=== PATIENT | female | born 1960 | race Caucasian/White ===

== ENCOUNTER → 2016-12-06 | Outpatient (CLI) | payer OTHER ==
--- NOTE | 2016-12-06 11:11 | REPMRS ---
Patient History The patient states she had a clinical breast exam in October 2016. Patient had first child at age 33. Family history of unknown cancer in paternal grandfather at age 50 or over and breast cancer in mother at age 54. Digital Mammo Screening Bilat: December 06, 2016 - Exam #: [id number] Bilateral CC and MLO view(s) were taken. Technologist: America Bhandari, Technologist Prior study comparison: December 04, 2015, bilateral digital mammo screening bilat performed at [facility]. December 01, 2014, bilateral digital mammo screening bilat performed at [facility]. November 29, 2013, bilateral digital mammo screening bilat performed at [facility]. FINDINGS: There are scattered fibroglandular densities. There has been no change in the appearance of the mammogram from the prior studies. There is a mild amount of scattered fibroglandular density which is fairly symmetric. There is no interval development of dominant mass, architectural distortion, or clustered microcalcification suggestive of malignancy. ASSESSMENT: BI-RADS/ACR category 1 mammogram. Negative. Recommendation Routine screening mammogram in 1 year (for women over age 40). This mammogram was interpreted with the aid of an FDA-approved computer-aided dectection system. Electronically Signed By: Jorge Levy MD 12/06/16 1111
== END ==
LOC: M RAD 10:34
PROVIDERS: ATTEND Family Medicine
DX: Z12.31 Encounter for screening mammogram for malignant neoplasm of breast (principal); Z80.3 Family history of malignant neoplasm of breast

== ENCOUNTER → 2017-01-21 | Outpatient (REF) | payer OTHER ==
[2017-01-21 19:10] LABS: CREATININE FOR GFR 1.22 MG/DL (0.55-1.02); GLOMERULAR FILTRATION RATE 48.7 (>51)
== END ==
LOC: M LABDRAW1 15:27
PROVIDERS: ATTEND Physician Assistant Medical
DX: M67.472 Ganglion, left ankle and foot (principal)

== ENCOUNTER → 2017-06-03 | Outpatient (CLI) | payer OTHER ==
[2017-06-03 17:26] LABS: BASO % 0.5 % (0.0-1.0); EOS # 0.1 10^3/uL (0.0-0.50); HEMATOCRIT 46.2 % (36.0-47.0); HEMOGLOBIN 14.9 g/dl (12.0-16.0); IMMATURE GRANULOCYTE % 0.3 % (0-3.0); LYMPH # 2.1 10^3/uL (1.5-4.5); LYMPH % 34.5 % (24.0-44.0); MEAN CORPUSCULAR HEMOGLOBIN 31.5 pg (27.0-33.0); MEAN CORPUSCULAR HGB CONC 32.3 g/dl (32.0-36.5); MEAN CORPUSCULAR VOLUME 97.7 fl (80.0-96.0); MONO # 0.4 10^3/uL (0.0-0.8); MONO % 6.8 % (0.0-5.0); NEUTROPHILS # 3.4 10^3/uL (1.8-7.7); NEUTROPHILS % 55.9 % (36.0-66.0); PLATELET COUNT, AUTOMATED 324 10^3/uL (150-450); RED BLOOD COUNT 4.73 10^6/uL (4.00-5.40); RED CELL DISTRIBUTION WIDTH 11.7 % (11.5-14.5); WHITE BLOOD COUNT 6.1 10^3/uL (4.0-10.0)
[2017-06-03 17:58] LABS: ALBUMIN 3.9 GM/DL (3.2-5.2); ALBUMIN/GLOBULIN RATIO 1.05 (1.00-1.93); ALKALINE PHOSPHATASE 114 U/L (45-117); ALT/SGPT 27 U/L (12-78); ANION GAP 6 MEQ/L (8-16); AST/SGOT 15 U/L (7-37); BILIRUBIN,TOTAL 0.4 MG/DL (0.2-1.0); BLOOD UREA NITROGEN 13 MG/DL (7-18); CALCIUM LEVEL 8.7 MG/DL (8.5-10.1); CARBON DIOXIDE LEVEL 31 MEQ/L (21-32); CHLORIDE LEVEL 104 MEQ/L (98-107); CHOLESTEROL LEVEL 172 MG/DL (<200); CHOLESTEROL RISK RATIO 3.127 (<5); CREATININE FOR GFR 0.71 MG/DL (0.55-1.30); GLOMERULAR FILTRATION RATE > 60.0 (>51); GLUCOSE, FASTING 88 MG/DL (70-100); HDL CHOLESTEROL 55 MG/DL (>40); LDL CHOLESTEROL 91.2 MG/DL (<100); NON-HDL-C 117 MG/DL; POTASSIUM SERUM 4.2 MEQ/L (3.5-5.1); SODIUM LEVEL 141 MEQ/L (136-145); TOTAL PROTEIN 7.6 GM/DL (6.4-8.2); TRIGLYCERIDES LEVEL 129 MG/DL (<150)
== END ==
LOC: M WUC 12:04
DX: I10 Essential (primary) hypertension (principal)
CPT/HCPCS: 84443

== ENCOUNTER 2017-06-04 09:16 | Day surgery (SDC) | payer OTHER ==
[2017-06-04] MEDS ORDERED: NS 1,000 ML IV (10:15)
[2017-06-04] MEDS ORDERED: PROPOFOL 200 MG/20 ML VIAL As Ordered ×2 (10:36→10:51)
[2017-06-04] MEDS ORDERED: LIDOCAINE 2% INJ 100 MG/5 ML SDV (FOR ANES.) As Ordered (10:36)
== END 2017-06-04 11:30 | disposition home or self-care (01) ==
LOC: M OPP 09:16
DX: Z12.11 Encounter for screening for malignant neoplasm of colon (principal); Z86.010 Personal history of colon polyps; K57.30 Diverticulosis of large intestine without perforation or abscess without bleeding; I10 Essential (primary) hypertension; K21.9 Gastro-esophageal reflux disease without esophagitis; M19.90 Unspecified osteoarthritis, unspecified site; Z78.0 Asymptomatic menopausal state; Z79.899 Other long term (current) drug therapy
CPT/HCPCS: G0105

== ENCOUNTER → 2018-03-09 | Outpatient (CLI) | payer OTHER | LOC: M RAD 16:03 | DX: D25.9 Leiomyoma of uterus, unspecified (principal); N95.0 Postmenopausal bleeding | CPT/HCPCS: 76856 ==

== ENCOUNTER → 2018-03-15 | Outpatient (CLI) | payer OTHER | LOC: M WUC 14:45 | DX: M17.11 Unilateral primary osteoarthritis, right knee (principal) | CPT/HCPCS: 73564 ==

== ENCOUNTER → 2018-06-04 | Outpatient (CLI) | payer OTHER ==
[~2018-06-04] MED LIST: LORA-243 PO; LOSA50TA88; MONT10TA2; PANT40TA3; VITA100067 PO; VITA50005
[2018-06-04 15:03] LABS: ALBUMIN 3.6 GM/DL (3.2-5.2); ALT/SGPT 27 U/L (12-78); BILIRUBIN,TOTAL 0.5 MG/DL (0.2-1.0); BLOOD UREA NITROGEN 13 MG/DL (7-18); CALCIUM LEVEL 8.5 MG/DL (8.5-10.1); CARBON DIOXIDE LEVEL 30 MEQ/L (21-32); CHLORIDE LEVEL 105 MEQ/L (98-107); CHOLESTEROL LEVEL 168 MG/DL (<200); CREATININE FOR GFR 0.77 MG/DL (0.55-1.30); GLOMERULAR FILTRATION RATE > 60.0 (>51); GLUCOSE, FASTING 100 MG/DL (70-100); HDL CHOLESTEROL 50 MG/DL (>40); LDL CHOLESTEROL 100 MG/DL (<100); NON-HDL-C 118 MG/DL; POTASSIUM SERUM 4.7 MEQ/L (3.5-5.1); SODIUM LEVEL 141 MEQ/L (136-145); TOTAL PROTEIN 7.2 GM/DL (6.4-8.2); TRIGLYCERIDES LEVEL 92 MG/DL (<150)
== END ==
LOC: M WUC 11:32
PROVIDERS: ATTEND Physician Assistant
DX: I10 Essential (primary) hypertension (principal)

== ENCOUNTER → 2018-08-26 | Outpatient (CLI) | payer OTHER ==
--- NOTE | 2018-08-27 03:53 | REP ---
Clinical: Irregular menstrual cycles Comparison: 03/09/2018 Technique: Transabdominal pelvic ultrasound followed by transvaginal examination for better evaluation of the endometrium and adnexa. Findings: Bladder is unremarkable and measures 11.2 x 4.9 x 8.4 cm . Heterogeneous anteverted uterus measures 8.2 x 3.5 x 4.5 cm . The endometrial complex measures 4.9 mm thickness. No discrete uterine or endometrial abnormalities are appreciated. Ovaries are not identifiable on either transabdominal or transvaginal imaging. Impression: 1. Heterogeneous uterus without significant change from prior examination. 2. Ovaries not visualized. Electronically Signed by Jose Saenz MD 08/27/2018 03:44 A
== END ==
LOC: M RAD 15:30
PROVIDERS: ATTEND Obstetrics & Gynecology
DX: N95.0 Postmenopausal bleeding (principal)

== ENCOUNTER → 2018-11-02 | Outpatient (REF) | payer OTHER ==
[2018-11-04 14:07] LABS: HPV HYBRID CAPTURE II Negative (Negative)
== END ==
LOC: M LAB REF 17:13
PROVIDERS: ATTEND Family Medicine
DX: Z12.4 Encounter for screening for malignant neoplasm of cervix (principal)
CPT/HCPCS: 87624; G0123

== ENCOUNTER → 2019-09-17 | Outpatient (CLI) | payer OTHER ==
[~2019-09-17] MED LIST changes: -MONT10TA2; +MONT10TA4
[2019-09-17 12:29] LABS: BASO % 0.6 % (0.0-1.0); EOS # 0.1 10^3/uL (0.0-0.5); EOS % 1.9 % (0.0-3.0); HEMATOCRIT 45.9 % (36.0-47.0); HEMOGLOBIN 14.8 g/dl (12.0-15.5); LYMPH # 1.8 10^3/uL (1.5-5.0); LYMPH % 38.3 % (24.0-44.0); MEAN CORPUSCULAR HEMOGLOBIN 31.2 pg (27.0-33.0); MEAN CORPUSCULAR HGB CONC 32.2 g/dl (32.0-36.5); MEAN CORPUSCULAR VOLUME 96.8 fl (80.0-96.0); MONO # 0.4 10^3/uL (0.0-0.8); MONO % 8.7 % (0.0-5.0); NEUTROPHILS # 2.4 10^3/uL (1.5-8.5); NEUTROPHILS % 50.3 % (36.0-66.0); PLATELET COUNT, AUTOMATED 279 10^3/uL (150-450); RED BLOOD COUNT 4.74 10^6/uL (4.00-5.40); WHITE BLOOD COUNT 4.8 10^3/uL (4.0-10.0)
[2019-09-17 12:51] LABS: HEMOGLOBIN A1c 5.8 %
[2019-09-17 13:14] LABS: ALBUMIN 3.3 GM/DL (3.2-5.2); ALT/SGPT 27 U/L (12-78); BILIRUBIN,TOTAL 0.7 MG/DL (0.2-1.0); BLOOD UREA NITROGEN 16 MG/DL (7-18); CALCIUM LEVEL 8.8 MG/DL (8.5-10.1); CARBON DIOXIDE LEVEL 29 MEQ/L (21-32); CHLORIDE LEVEL 105 MEQ/L (98-107); CHOLESTEROL LEVEL 170 MG/DL (<200); CHOLESTEROL RISK RATIO 3.617 (<5); CREATININE FOR GFR 0.83 MG/DL (0.55-1.30); FREE T4 1.21 NG/DL (0.76-1.46); GLOMERULAR FILTRATION RATE > 60.0 (>51); GLUCOSE, FASTING 105 MG/DL (70-100); HDL CHOLESTEROL 47 MG/DL (>40); LDL CHOLESTEROL 105 MG/DL (<100); NON-HDL-C 123 MG/DL; POTASSIUM SERUM 5.1 MEQ/L (3.5-5.1); SODIUM LEVEL 138 MEQ/L (136-145); TOTAL 25(OH) VITAMIN D 71.4 NG/ML (30.0-100.0); TRIGLYCERIDES LEVEL 91 MG/DL (<150)
== END ==
LOC: M WUC 09:46
PROVIDERS: ATTEND Physician Assistant
DX: Z13.29 Encounter for screening for other suspected endocrine disorder (principal); Z13.220 Encounter for screening for lipoid disorders

== ENCOUNTER → 2020-01-05 | Outpatient (CLI) | payer OTHER ==
[~2020-01-05] MED LIST changes: +GASTROGRAFIN SOLUTION 30ML (Q9963) As Ordered ONE; +ISOVUE-370 76% 100ML VIAL As Ordered ONE; +PANT40TA29; -PANT40TA3
--- NOTE | 2020-01-20 10:15 | REP ---
CT PELVIS WITH INTRAVENOUS (IV) AND ORAL CONTRAST HISTORY: Postmenopausal bleeding. Unable to visualize ovaries on ultrasound. COMPARISON: Sonography 12/13/2019. CT CONTRAST DOSE: 100 mL of intravenous Isovue-[address] FINDINGS: Preliminary digital fixed interest dealer radiograph is unremarkable. Normal bowel gas pattern is visible. Uterus is normal in size and appearance. Normal ovaries are observed bilaterally. No ovarian mass or cyst is seen. There is left colonic sigmoid diverticulosis without CT evidence of diverticulitis. No free fluid is seen. No abdominal wall defect is seen. No bony destructive lesion is observed. IMPRESSION: Normal uterus and ovaries seen. No acute abnormality. MTDD
== END ==
LOC: M RAD 08:41
PROVIDERS: ATTEND Physician Assistant
DX: N93.8 Other specified abnormal uterine and vaginal bleeding (principal)
CPT/HCPCS: 72193; Q9963; Q9967

== ENCOUNTER → 2020-04-19 | Outpatient (CLI) | payer OTHER ==
[~2020-04-19] MED LIST changes: +D31000TA2 PO; -GASTROGRAFIN SOLUTION 30ML (Q9963) As Ordered ONE; -ISOVUE-370 76% 100ML VIAL As Ordered ONE; -MONT10TA4; +MONT5TAB2; +VITA50005 PO
--- NOTE | 2020-04-19 15:39 | REP ---
INDICATION: POST MENAPAUSAL BLEEDING COMPARISON: None. TECHNIQUE: Transabdominal pelvic ultrasound followed by transvaginal examination for better evaluation of the endometrium and adnexa. FINDINGS: Bladder is unremarkable and measures 13.0 x 6.3 x 9.3 cm. Heterogeneous anteverted uterus measures 8.0 x 4.1 x 4.3 cm. The endometrial complex measures 6.7 mm thickness. No discrete uterine or endometrial abnormalities are appreciated. Bilateral ovaries are not visualized on either transabdominal or transvaginal images. No pelvic fluid or adnexal mass lesion. IMPRESSION: 1. Heterogeneous anteverted uterus with endometrial complex measuring 6.7 mm thickness. No discrete abnormality identified. 2. Ovaries not visualized. <Electronically signed by Jose Saenz > 04/19/20 [id number]
== END ==
LOC: M RAD 14:50
PROVIDERS: ATTEND Obstetrics & Gynecology
DX: N95.0 Postmenopausal bleeding (principal)

== ENCOUNTER → 2020-04-26 | Outpatient (CLI) | payer OTHER ==
[2020-04-26 16:28] LABS: BASO % 0.6 % (0.0-1.0); EOS # 0.1 10^3/uL (0.0-0.5); EOS % 1.2 % (0.0-3.0); HEMATOCRIT 46.6 % (36.0-47.0); HEMOGLOBIN 14.6 g/dl (12.0-15.5); LYMPH # 1.9 10^3/uL (1.5-5.0); LYMPH % 37.7 % (24.0-44.0); MEAN CORPUSCULAR HEMOGLOBIN 31.4 pg (27.0-33.0); MEAN CORPUSCULAR HGB CONC 31.3 g/dl (32.0-36.5); MEAN CORPUSCULAR VOLUME 100.2 fl (80.0-96.0); MONO # 0.4 10^3/uL (0.0-0.8); MONO % 7.7 % (0.0-5.0); NEUTROPHILS # 2.7 10^3/uL (1.5-8.5); NEUTROPHILS % 52.6 % (36.0-66.0); PLATELET COUNT, AUTOMATED 299 10^3/uL (150-450); RED BLOOD COUNT 4.65 10^6/uL (4.00-5.40)
[2020-04-26 16:50] LABS: ALBUMIN 3.5 GM/DL (3.2-5.2); ALT/SGPT 29 U/L (12-78); BILIRUBIN,TOTAL 0.5 MG/DL (0.2-1.0); BLOOD UREA NITROGEN 10 MG/DL (7-18); CARBON DIOXIDE LEVEL 32 MEQ/L (21-32); CHLORIDE LEVEL 104 MEQ/L (98-107); CREATININE FOR GFR 0.79 MG/DL (0.55-1.30); GLOMERULAR FILTRATION RATE > 60.0 (>51); GLUCOSE, FASTING 89 MG/DL (70-100); POTASSIUM SERUM 4.5 MEQ/L (3.5-5.1); SODIUM LEVEL 138 MEQ/L (136-145); TOTAL PROTEIN 7.3 GM/DL (6.4-8.2)
[2020-04-26 17:00] LABS: TOTAL 25(OH) VITAMIN D 58.6 NG/ML (30.0-100.0)
[2020-04-26 17:35] LABS: HEMOGLOBIN A1c 5.3 %
== END ==
LOC: M WUC 11:53
PROVIDERS: ATTEND Physician Assistant
DX: R73.01 Impaired fasting glucose (principal)

== ENCOUNTER 2020-05-04 08:51 | Day surgery (SDC) | payer OTHER ==
[~2020-05-04] VITALS: Ht 165.1 cm; Wt 125.6 kg
[~2020-05-04 08:51] MED LIST changes: +LR 1,000 ML IV ONE; +MONT10TA10; -MONT5TAB2
[2020-05-04] MEDS ORDERED: ONDANSETRON 4MG/2ML VIAL As Ordered ONE (08:58)
[2020-05-04] MEDS ORDERED: KETOROLAC 60MG 2ML VIAL As Ordered ONE (08:58)
[2020-05-04] MEDS ORDERED: fentaNYL 100 MCG/2 ML INJECTION (J3010) As Ordered ONE (08:58)
[2020-05-04] MEDS ORDERED: propofoL 200 MG/20 ML VIAL As Ordered ONE (08:58)
[2020-05-04] MEDS ORDERED: dexameTHASONE 4 MG/ML 1ML VIAL (J1100 PER 1MG) As Ordered ONE (08:58)
[2020-05-04] MEDS ORDERED: MIDAZOLAM INJ 2MG/2ML VIAL (J2250 PER 1MG) As Ordered ONE (08:58)
[2020-05-04] MEDS ORDERED: LIDOCAINE 2% 100MG/5ML SDV (FOR ANES.) As Ordered ONE (08:58)
[2020-05-04 12:55] VITALS: BP 125/57
--- NOTE | 2020-05-04 13:44 | RO ---
OPERATIVE NOTE DATE OF OPERATION: 05/04/2020 PREOPERATIVE DIAGNOSIS/INDICATION FOR SURGERY: Postmenopausal bleeding, abnormal sonogram. POSTOPERATIVE DIAGNOSIS: Postmenopausal bleeding, abnormal sonogram. PROCEDURE: Dilatation and curettage (D and C), hysteroscopy, Myosure resection of thickened endometrium, but there was no separate polyp. SURGEON: Dr. Manzanares ANESTHESIA: Laryngeal mask airway (LMA). BRIEF DESCRIPTION OF PROCEDURE AND FINDINGS: Karen was brought to the operating room, where sufficient LMA anesthesia was induced, and she was prepped, draped, and positioned in the normal fashion. The cervix was grasped with a single-tooth tenaculum, the bladder emptied. The uterus sounded to 7 and then the cervix carefully dilated to allow introduction of the hysteroscope, which was used to visualize the endometrial cavity, which had a little bit of overgrowth of endometrium but normal ostia, normal contour, and a normal proportion of a bit longer cervix, as one expects in a postmenopausal patient, and otherwise normal cervical canal. The Myosure light was used to resect the overgrowth, which was a little more than expected in the postmenopausal women, over the endometrium, and curettage was then carried out after the Myosure resection to make sure we got everything and there was normal uterine cry throughout. The procedure was then ended. ESTIMATED BLOOD LOSS FOR THE PROCEDURE: About 2 mL. FLUID REPLACEMENT: Crystalloid. COMPLICATIONS: None. CONDITION AND DISPOSITION: Karen tolerated the procedure well. She was recovering in the recovery room in good condition.
== END 2020-05-04 12:55 | disposition home or self-care (01) ==
LOC: M SDC 08:51
PROVIDERS: ATTEND Obstetrics & Gynecology
DX: N85.00 Endometrial hyperplasia, unspecified (principal); I10 Essential (primary) hypertension; K57.92 Diverticulitis of intestine, part unspecified, without perforation or abscess without bleeding; F41.9 Anxiety disorder, unspecified; F32.9 Major depressive disorder, single episode, unspecified; Z79.899 Other long term (current) drug therapy
CPT/HCPCS: 58558; 88305; J1100; J1885; J2250; J2405; J3010

== ENCOUNTER → 2020-09-08 | Outpatient (CLI) | payer OTHER ==
[~2020-09-08] MED LIST changes: -LR 1,000 ML IV ONE
[2020-09-08 12:04] LABS: BASO % 0.7 % (0.0-1.0); EOS % 0.7 % (0.0-3.0); HEMATOCRIT 45.8 % (36.0-47.0); HEMOGLOBIN 15.1 g/dl (12.0-15.5); LYMPH # 2.3 10^3/uL (1.5-5.0); LYMPH % 42.2 % (24.0-44.0); MEAN CORPUSCULAR HEMOGLOBIN 31.7 pg (27.0-33.0); MEAN CORPUSCULAR VOLUME 96.2 fl (80.0-96.0); MONO # 0.5 10^3/uL (0.0-0.8); MONO % 9.3 % (2.0-8.0); NEUTROPHILS # 2.5 10^3/uL (1.5-8.5); NEUTROPHILS % 46.9 % (36.0-66.0); PLATELET COUNT, AUTOMATED 310 10^3/uL (150-450); RED BLOOD COUNT 4.76 10^6/uL (4.00-5.40); WHITE BLOOD COUNT 5.4 10^3/uL (4.0-10.0)
[2020-09-08 12:33] LABS: BLOOD UREA NITROGEN 8 MG/DL (7-18); CALCIUM LEVEL 8.9 MG/DL (8.5-10.1); CARBON DIOXIDE LEVEL 27 MEQ/L (21-32); CHLORIDE LEVEL 105 MEQ/L (98-107); CREATININE FOR GFR 0.75 MG/DL (0.55-1.30); GLOMERULAR FILTRATION RATE > 60.0 (>51); GLUCOSE, FASTING 80 MG/DL (70-100); POTASSIUM SERUM 4.6 MEQ/L (3.5-5.1); SODIUM LEVEL 138 MEQ/L (136-145)
[2020-09-08 12:43] LABS: INR 0.94; PROTHROMBIN TIME 12.8 SECONDS (12.5-14.3)
[2020-09-08 12:44] LABS: PARTIAL THROMBOPLASTIN TIME 29.2 SECONDS (24.2-38.5)
== END ==
LOC: M WUC 09:58
PROVIDERS: ATTEND Physician Assistant
DX: Z01.812 Encounter for preprocedural laboratory examination (principal)

== ENCOUNTER → 2020-09-24 | Outpatient (CLI) | payer OTHER ==
[~2020-09-24] MED LIST changes: +MEGE20TA3 PO; -PANT40TA29; +PANT40TA29 PO
== END ==
LOC: M LABSMTC 08:37
PROVIDERS: ATTEND Anesthesiology
DX: Z01.812 Encounter for preprocedural laboratory examination (principal); Z20.822 Contact with and (suspected) exposure to COVID-19

== ENCOUNTER 2020-09-29 08:43 | Day surgery (SDC) | payer OTHER ==
[~2020-09-29] VITALS: Ht 162.6 cm; Wt 121.0 kg
[2020-09-29] VITALS (8 sets, daily range): BP systolic 114–140; BP diastolic 53–73
[~2020-09-29 08:43] MED LIST changes: +ERGO500029 PO; +LIDOCAINE 1% MDV 20ML VIAL SQ PRN; +LR 1,000 ML IV ONE; -VITA50005 PO; +ceFAZolin SOD 2 GM in IV 1 EA IV ONE
[2020-09-29 09:21] LABS: HEMATOCRIT 47.5 % (36.0-47.0); HEMOGLOBIN 15.9 g/dl (12.0-15.5); MEAN CORPUSCULAR HEMOGLOBIN 32.2 pg (27.0-33.0); MEAN CORPUSCULAR HGB CONC 33.5 g/dl (32.0-36.5); MEAN CORPUSCULAR VOLUME 96.2 fl (80.0-96.0); PLATELET COUNT, AUTOMATED 302 10^3/uL (150-450); RED BLOOD COUNT 4.94 10^6/uL (4.00-5.40); WHITE BLOOD COUNT 5.7 10^3/uL (4.0-10.0)
[2020-09-29] MEDS ORDERED: MIDAZOLAM INJ 2MG/2ML VIAL (J2250 PER 1MG) As Ordered ONE (09:37)
[2020-09-29] MEDS ORDERED: fentaNYL 100 MCG/2 ML INJECTION (J3010) As Ordered ONE (09:38)
[2020-09-29] MEDS ORDERED: ONDANSETRON 4MG/2ML VIAL As Ordered ONE (11:25)
[2020-09-29] MEDS ORDERED: dexameTHASONE 4 MG/ML 1ML VIAL (J1100 PER 1MG) As Ordered ONE (11:25)
[2020-09-29] MEDS ORDERED: SUGAMMADEX SODIUM 500 MG/5 ML VIAL (BRIDION) As Ordered ONE (11:25)
[2020-09-29] MEDS ORDERED: propofoL 200 MG/20 ML VIAL As Ordered ONE ×2 (11:25→12:29)
[2020-09-29] MEDS ORDERED: ROCURONIUM BROMIDE 50 MG/5 ML VIAL As Ordered ONE ×2 (11:25→11:47)
[2020-09-29] MEDS ORDERED: METOCLOPRAMIDE INJ 10MG/2ML VIAL (J2765 PER 1) As Ordered ONE (11:26)
[2020-09-29] MEDS ORDERED: ACETAMINOPHEN 1000MG 100ML IV BTL (OFIRMEV) (J0131 PER 10MG) As Ordered ONE (11:26)
[2020-09-29] MEDS ORDERED: KETOROLAC 60MG 2ML VIAL As Ordered ONE (11:26)
[2020-09-29] MEDS ORDERED: HYDROmorphone HCL 2 MG/ML 1ML VIAL (J1170) As Ordered ONE (12:27)
[2020-09-29] MEDS ORDERED: MORPHINE 1MG/ML IN 0.9% NACL 100ML IV BAG As Ordered ONE (12:36)
[2020-09-29] MEDS ORDERED: NALOXONE INJ 0.4MG/1ML VIAL (J2310 PER 1MG) IV PRN (13:20)
[2020-09-29] MEDS ORDERED: MORPHINE 1MG/ML IN 0.9% NACL 100ML IV BAG IV PRN (13:20)
[2020-09-29] MEDS ORDERED: NALBUPHINE HCL 10 MG/ML AMP (J2300) IV PRN (13:20)
[2020-09-29] MEDS ORDERED: EPIDURAL/PCA KEYS XX PRN (13:20)
[2020-09-29] MEDS ORDERED: IBUPROFEN 600MG TAB PO PRN (13:20)
[2020-09-29] MEDS ORDERED: LR 1,000 ML IV SCH ×2 (13:20)
[2020-09-29] MEDS ORDERED: METOCLOPRAMIDE INJ 10MG/2ML VIAL (J2765 PER 1) IV PRN (13:20)
[2020-09-29] MEDS ORDERED: diphenhydrAMINE 50MG/ML VIAL (J1200) IV PRN (13:20)
[2020-09-29] MEDS ORDERED: NS 1,000 ML IV SCH (13:20)
[2020-09-29] MEDS ORDERED: ONDANSETRON 4MG/2ML VIAL IV PRN (13:20)
[2020-09-29] MEDS ORDERED: fentaNYL 100 MCG/2 ML INJECTION (J3010) IV PRN (13:20)
[2020-09-29] MEDS ORDERED: PERCOCET 5MG/325MG TAB PO PRN (13:20)
--- NOTE | 2020-09-29 16:32 | RO ---
OPERATIVE NOTE DATE OF OPERATION: 09/29/2020 PREOPERATIVE DIAGNOSIS/INDICATION FOR SURGERY: Hyperplasia with atypia. POSTOPERATIVE DIAGNOSIS: Hyperplasia with atypia. PROCEDURE: Robotic-assisted hysterectomy with bilateral salpingo-oophorectomy SURGEON: Hui Manzanares MD EVAPORATOR OPERATOR MOLASSES: None. ANESTHESIA: General endotracheal anesthesia. BRIEF DESCRIPTION OF PROCEDURE AND FINDINGS: Karen was brought to the operating room where sufficient general endotracheal anesthesia was induced. She was prepped, draped and positioned in the usual sterile fashion with the cervix grasped with a single-tooth tenaculum. The uterus sounded to 10 and 0 Vicryl sutures placed in the cervix to secure the V-Loc uterine manipulator which was then carefully placed. We then also placed a Grewal with the ability to back fill the bladder. Having placed both of those, attention was turned to the abdomen. A transverse semilunar incision was made below the umbilicus. Sharp and blunt dissection continued through the subcutaneous tissues to the level of the rectus fascia which was transversely incised and elevated with New clamps. 0 Vicryl retention sutures were placed and the peritoneum was then entered under direct visualization and an open laparoscopic technique. The Lacey cannula was placed and CO2 insufflation then begun. After adequate CO2 insufflation, the peritoneal cavity was visualized. There were normal shiny peritoneal surfaces throughout. There were some minor adhesions along the left lateral aspect of the sidewall and what appeared to be an endometriotic implant on the lateral aspect of the uterus. We tried to take pictures of these but for some reason the camera was malfunctioning so we have pictures just after insufflation before Trendelenburg, so before the uterus is visible and we have a picture after the uterus was removed but we do not have a picture of that finding. That said, the uterus itself was sent in its entirety for pathology and there was nothing friable there. It looked like scarring, not anything particularly unusual and of course it will be thoroughly evaluated. There is no evidence of any peritoneal problem, no excrescence, ascites nor exudate and upper abdomen with normal appearance. Two left-sided, one right-side port were placed. The robot was docked and then attention was turned to the work from the console. From the console, the adhesions from the left lateral sidewall, those filmy things were just cut down with cold scissors just to free up the infundibulopelvic ligament there and then of course with the Trendelenburg, we could readily isolate the left side infundibulopelvic which was carefully cauterized and transected and the mesentery of the tube and ovary carefully dissected, dissecting the superior aspect of the broad ligament to the round and the round was then cauterized and transected as well and the same was carried out on the patient's right with care taken to avoid the ureters and the bowel . We then carefully brought down the peritoneal incision in the broad ligament towards crossing over the anterior aspect of the uterus and brought down the bladder flap. We could readily see the uterine manipulator. We did back fill and confirmed location of he bladder and then having freed up those tissues, we freed the posterior aspect of the peritoneum, let the ureters drop away from the uterosacrals and then carefully cauterize the uterine vasculature. Then starting posteriorly, we made a colpotomy circumferentially around the base of the uterus. As we were dissecting, we ended up coming below one of our areas of cautery on the vasculature so after the uterus was delivered into the vagina, we had some bleeding from one of the uterine vessels and we did oversew this with V-Loc suture with no difficulty but of course, she had a little bit of blood loss at that time. There did not appear to be any involvement of the ureters or any difficulty with the bladder or bowel and we closed the vaginal cuff, of course doing angle stitches and closure of the cuff with the V-Loc suture with good approximation and hemostasis achieved. We then paused after removal, irrigated, suctioned, etc and confirmed that we had good control of that arterial bleed. We had good hemostasis. Total EBL was about 250, much of it from that point but there was no evidence of bleeding and we did let the pressure down a little bit to confirm this with good result. We then ended the procedure. The CO2 was allowed to escape the abdomen. The abdominal wounds were then closed at the umbilicus. The fascial wound was closed with 0 Vicryl retention sutures. The skin was closed in all four wounds with a 3-0 Vicryl subcuticular stitch and a dry sterile dressing then applied. ESTIMATED BLOOD LOSS FOR THE PROCEDURE: About 250 mL. FLUID REPLACEMENT: Crystalloid. COMPLICATIONS: None. CONDITION AND DISPOSITION: Karen tolerated the procedure well and was recovering in the recovery room in good condition. I should say before the procedure started, she did have a bounce in her blood pressure, a little drop. This was before we actually started the surgery so I do not personally think of that as a surgical complication but just a sensitivity but should be noted that as she was induced, she very briefly dropped her blood pressures and recovered this before we even started any part of the case.
[2020-09-30] VITALS: BP 109/55
[2020-09-30] MEDS ORDERED: UNRESOLVED CLARIFICATION ENTRY XX SCH (00:01)
[2020-09-30 04:00] VITALS: BP 132/61
[2020-09-30] MEDS ORDERED: NORCO, ANEXSIA 5/325MG TABLET (HYDROcodone/ACETAMINOPHEN) PO PRN (06:00)
[2020-09-30 08:00] VITALS: BP 122/66
[2020-09-30 08:06] LABS: HEMATOCRIT 40.8 % (36.0-47.0); MEAN CORPUSCULAR HGB CONC 33.1 g/dl (32.0-36.5); MEAN CORPUSCULAR VOLUME 96.7 fl (80.0-96.0); PLATELET COUNT, AUTOMATED 289 10^3/uL (150-450); RED BLOOD COUNT 4.22 10^6/uL (4.00-5.40); WHITE BLOOD COUNT 10.5 10^3/uL (4.0-10.0)
[2020-09-30 08:12] LABS: HEMOGLOBIN 13.5 g/dl (12.0-15.5)
[2020-09-30] MEDS ORDERED: IBUP-1114 PO (08:58)
[2020-09-30] MEDS ORDERED: PERCOCET PO (08:58)
[2020-09-30] MEDS ORDERED: LORATADINE 10 MG TAB PO SCH (09:00)
[2020-09-30] MEDS ORDERED: PANTOPRAZOLE 20 MG TAB PO SCH (09:00)
[2020-09-30] MEDS ORDERED: MONTELUKAST 10 MG TAB PO SCH (09:00)
[2020-09-30] MEDS ORDERED: LOSARTAN 50MG TABLET PO SCH (09:00)
[2020-09-30] MEDS ORDERED: VITAMIN D 1,000 INTERNATIONAL UNITS TABLET PO SCH (09:00)
[2020-09-30] MEDS ORDERED: HYDR-3713 PO (09:07)
== END 2020-09-30 10:00 | disposition home or self-care (01) ==
LOC: M SDC 08:43 → M PED 13:58 → M SDC 09-30 10:00
PROVIDERS: ATTEND Obstetrics & Gynecology
DX: N84.0 Polyp of corpus uteri (principal); N80.0 Endometriosis of uterus; N83.291 Other ovarian cyst, right side; N83.292 Other ovarian cyst, left side; N72 Inflammatory disease of cervix uteri; N99.71 Accidental puncture and laceration of a genitourinary system organ or structure during a genitourinary system procedure; I10 Essential (primary) hypertension; K57.90 Diverticulosis of intestine, part unspecified, without perforation or abscess without bleeding; R12 Heartburn; M19.90 Unspecified osteoarthritis, unspecified site; R06.83 Snoring; E66.9 Obesity, unspecified; Z68.42 Body mass index [BMI] 45.0-49.9, adult; Z79.899 Other long term (current) drug therapy
CPT/HCPCS: 36415; 58571; 85027; 86850; 86900; 86901; 88307; J0131; J0690; J1100; J1170; J1885; J2250; J2405; J2765; J3010; S2900

== ENCOUNTER → 2020-12-07 | Outpatient (CLI) | payer OTHER ==
[~2020-12-07] MED LIST changes: +HYDR-3713 PO; +IBUP-1114 PO; -LIDOCAINE 1% MDV 20ML VIAL SQ PRN; -LR 1,000 ML IV ONE; +PERCOCET PO; -ceFAZolin SOD 2 GM in IV 1 EA IV ONE
--- NOTE | 2020-12-07 14:47 | REPMRS ---
Patient History The patient states she had a clinical breast exam in 04/2020. Patient is postmenopausal and had first child at age 33. Family history of breast cancer at age 54 in mother. Benign localization of breast nodule of the left breast, 1999. No Hormone Replacement Therapy Patient states no breast complaints today. Patient has signed MRS History Sheet. Digital Woman Screen Mammo: December 07, 2020 - Exam #: [id number] Bilateral CC and MLO view(s) were taken. Technologist: Nai Mason, Technologist Prior study comparison: December 13, 2019, bilateral digital mammo screening bilat, performed at [facility]. December 10, 2018, bilateral digital mammo screening bilat, performed at [facility]. December 09, 2017, bilateral digital mammo screening bilat, performed at [facility]. FINDINGS: There are scattered fibroglandular densities. The Volpara volumetric breast density category is:B. There has been no change in the appearance of the mammogram from the prior studies. There is a mild amount of scattered fibroglandular density which is fairly symmetric. There is no interval development of dominant mass, architectural distortion, or grouped microcalcification suggestive of malignancy. 3-D tomosynthesis shows no additional findings. Assessment: BI-RADS/ACR category 1 mammogram. Negative Mammogram. Recommendation Breast MRI of both breasts in 6 months. Routine screening mammogram of both breasts in 1 year (for women over age 40). This patient's [facility] Lifetime Breast Cancer Risk is estimated at 28.1 %. Patients whose estimated lifetime breast cancer risk assessment is greater than 20% merit annual screening breast MRI scanning in addition to annual mammography. This mammogram was interpreted with the aid of an FDA-approved computer-aided dectection system. Electronically Signed By: Jorge Levy MD 12/07/20 0613
--- NOTE | 2020-12-07 15:20 | DEXAMM ---
INDICATION: SCR FOR OSTEOPOROSIS/Z13.820. COMPARISON: None. TECHNIQUE: Bone density was measured using dual-energy x-ray absorptionmetry (DEXA). FINDINGS: AP SPINE L1-L4 BMD 1.499 g/cm2 Young Adult T-Score 2.5 Age Matched Z-Score 3.6. LT FEMUR, TOTAL BMD 1.095 g/cm2 Young Adult T-Score 0.7 Age Matched Z-Score 1.6. LT NECK BMD 0.861 g/cm2 Young Adult T-Score -1.3 Age Matched Z-Score -0.1. RT FEMUR, TOTAL BMD 1.030 g/cm2 Young Adult T-Score 0.2 Age Matched Z-Score 1.1. RT NECK BMD 0.877 g/cm2 Young Adult T-Score -1.2 Age Matched Z-Score 0.1. IMPRESSION: There is normal bone density of the spine. There is low bone density of the left hip. There is low bone density of the right hip. FOLLOW-UP: Recommendation for the next bone density exam: 2 years. <Electronically signed by Jorge Levy > 12/07/20 9916
== END ==
LOC: M WHC 13:42
PROVIDERS: ATTEND Physician Assistant
DX: Z12.31 Encounter for screening mammogram for malignant neoplasm of breast (principal); Z13.820 Encounter for screening for osteoporosis; Z78.0 Asymptomatic menopausal state; Z80.3 Family history of malignant neoplasm of breast; Z86.018 Personal history of other benign neoplasm; M85.88 Other specified disorders of bone density and structure, other site

== ENCOUNTER → 2021-05-09 | Outpatient (CLI) | payer OTHER ==
[~2021-05-09] MED LIST changes: +LOSA50TA28; -LOSA50TA88; -MONT10TA10; +MONT10TA97
[2021-05-09 14:02] LABS: BASO % 0.3 % (0.0-1.0); EOS # 0.1 10^3/uL (0.0-0.5); HEMOGLOBIN 14.5 g/dl (12.0-15.5); LYMPH # 2.3 10^3/uL (1.5-5.0); LYMPH % 38.3 % (24.0-44.0); MEAN CORPUSCULAR HGB CONC 32.2 g/dl (32.0-36.5); MEAN CORPUSCULAR VOLUME 96.4 fl (80.0-96.0); MONO # 0.4 10^3/uL (0.0-0.8); MONO % 7.2 % (2.0-8.0); NEUTROPHILS # 3.1 10^3/uL (1.5-8.5); NEUTROPHILS % 51.9 % (36.0-66.0); PLATELET COUNT, AUTOMATED 297 10^3/uL (150-450); RED BLOOD COUNT 4.67 10^6/uL (4.00-5.40)
[2021-05-09 14:58] LABS: ALBUMIN 3.7 GM/DL (3.2-5.2); ALT/SGPT 26 U/L (12-78); BILIRUBIN,TOTAL 0.4 MG/DL (0.2-1.0); BLOOD UREA NITROGEN 13 MG/DL (7-18); CALCIUM LEVEL 9.2 MG/DL (8.5-10.1); CARBON DIOXIDE LEVEL 32 MEQ/L (21-32); CHLORIDE LEVEL 103 MEQ/L (98-107); CREATININE FOR GFR 0.77 MG/DL (0.55-1.30); GLOMERULAR FILTRATION RATE > 60.0 (>51); GLUCOSE, FASTING 91 MG/DL (70-100); POTASSIUM SERUM 4.8 MEQ/L (3.5-5.1); SODIUM LEVEL 137 MEQ/L (136-145); TOTAL PROTEIN 7.4 GM/DL (6.4-8.2)
== END ==
LOC: M PLALAB 10:24
PROVIDERS: ATTEND Family Medicine
DX: K21.9 Gastro-esophageal reflux disease without esophagitis (principal); I10 Essential (primary) hypertension

== ENCOUNTER → 2021-12-20 | Outpatient (CLI) | payer OTHER ==
[~2021-12-20] MED LIST changes: -D31000TA2 PO; +VITA100093 PO
== END ==
LOC: M WHC 14:58
PROVIDERS: ATTEND Physician Assistant
DX: Z12.31 Encounter for screening mammogram for malignant neoplasm of breast (principal)

== ENCOUNTER → 2022-04-29 | Outpatient (REF) | payer OTHER | LOC: M LAB REF 16:56 | PROVIDERS: ATTEND Physician Assistant | DX: J20.9 Acute bronchitis, unspecified (principal) ==

== ENCOUNTER → 2022-11-12 | Outpatient (CLI) | payer OTHER | LOC: M WUC 15:02 | PROVIDERS: ATTEND Physician Assistant | DX: M25.552 Pain in left hip (principal) ==

== ENCOUNTER → 2023-06-02 | Outpatient (CLI) | payer OTHER | LOC: M WHC 13:12 | PROVIDERS: ATTEND Family Medicine | DX: Z12.31 Encounter for screening mammogram for malignant neoplasm of breast (principal); M85.852 Other specified disorders of bone density and structure, left thigh; E55.9 Vitamin D deficiency, unspecified; Z13.820 Encounter for screening for osteoporosis; Z13.220 Encounter for screening for lipoid disorders; Z13.29 Encounter for screening for other suspected endocrine disorder; Z13.0 Encounter for screening for diseases of the blood and blood-forming organs and certain disorders involving the immune mechanism ==

== ENCOUNTER → 2023-11-06 | Outpatient (CLI) | payer OTHER ==
[2023-11-06 10:30] LABS: BASO % 0.4 % (0.0-1.0); EOS # 0.1 10^3/uL (0.0-0.5); HEMOGLOBIN 14.5 g/dl (12.0-15.5); LYMPH # 1.8 10^3/uL (1.5-5.0); LYMPH % 37.1 % (24.0-44.0); MEAN CORPUSCULAR HEMOGLOBIN 32.4 pg (27.0-33.0); MEAN CORPUSCULAR VOLUME 98.4 fl (80.0-96.0); MONO # 0.4 10^3/uL (0.0-0.8); MONO % 7.3 % (2.0-8.0); NEUTROPHILS # 2.6 10^3/uL (1.5-8.5); PLATELET COUNT, AUTOMATED 273 10^3/uL (150-450); RED BLOOD COUNT 4.47 10^6/uL (4.00-5.40)
[2023-11-06 10:48] LABS: ALBUMIN 3.6 G/DL (3.2-5.2); ALKALINE PHOSPHATASE 102 U/L (46-116); ALT/SGPT 16 U/L (7.0-40); AST/SGOT 9 U/L (<34); BILIRUBIN,TOTAL 0.8 MG/DL (0.3-1.2); BLOOD UREA NITROGEN 13 MG/DL (9-23); CALCIUM LEVEL 9.2 MG/DL (8.3-10.6); CARBON DIOXIDE LEVEL 31 MMOL/L (20-31); CHLORIDE LEVEL 106 MMOL/L (98-107); CHOLESTEROL LEVEL 170 MG/DL (<200); CHOLESTEROL RISK RATIO 3.34 (<5); GLOMERULAR FILTRATION RATE > 60.0 (>45); GLUCOSE, FASTING 88 MG/DL (74-106); HDL CHOLESTEROL 50.8 MG/DL (>40); LDL CHOLESTEROL 104.2 MG/DL (<100); NON-HDL-C 119.2 MG/DL; POTASSIUM SERUM 4.3 MMOL/L (3.5-5.1); SODIUM LEVEL 139 MMOL/L (136-145); TOTAL PROTEIN 6.7 G/DL (5.7-8.2); TRIGLYCERIDES LEVEL 75 MG/DL (<150)
[2023-11-06 10:50] LABS: FREE T4 1.08 NG/DL (0.89-1.76); THYROID STIMULATING HORMONE 1.861 uIU/ML (0.55-4.78)
== END ==
LOC: M WUC 08:54
PROVIDERS: ATTEND Family Medicine
DX: Z13.220 Encounter for screening for lipoid disorders (principal); Z13.29 Encounter for screening for other suspected endocrine disorder; Z13.0 Encounter for screening for diseases of the blood and blood-forming organs and certain disorders involving the immune mechanism; E55.9 Vitamin D deficiency, unspecified

== ENCOUNTER → 2024-06-04 | Outpatient (CLI) | payer OTHER | LOC: M WHC 10:42 | PROVIDERS: ATTEND Physician Assistant | DX: Z12.31 Encounter for screening mammogram for malignant neoplasm of breast (principal) ==